=== PATIENT | female | born 1950 | race Caucasian/White ===

== ENCOUNTER 2025-02-19 10:00 | Emergency (ER) | payer MEDICARE, SELFPAY ==
[2025-02-19 10:07] VITALS: BP 178/79; PULSE 86; RESP 14; O2SAT 96; BMI 29.0
--- NOTE | 2025-02-19 10:10 | DI.RAD.S_ITS ---
PROCEDURE: XR KNEE LT 3V INDICATIONS: twisted left knee,unable to bear weight TECHNIQUE: 3 views of the knee were acquired. COMPARISON: None. FINDINGS: Bones: No fractures or dislocations. No suspicious bony lesions. Soft tissues: No joint effusion. No suspicious soft tissue calcifications. IMPRESSION: No acute bony abnormality or significant effusion. Dictated by: Nikko Law M.D. on 02/19/2025 at 10:31 Approved by: Nikko Law M.D. on 02/19/2025 at 10:43
--- NOTE | 2025-02-19 10:47 | ED.LOWEXIN ---
HPI - Extremity Injury (Lower) General Chief Complaint: Extremity Injury, Lower Stated Complaint: cannot bear weight on lt knee, twisted Time Seen by Provider: 02/19/25 10:30 Source: patient Mode of arrival: Wheelchair History of Present Illness HPI Narrative: Patient brought here by her son for complaints of left knee pain. Yesterday at the refrigerator she pivoted and had her left leg and knee planted and felt pain in her left knee. Two months ago she did twist her knee while hiking. It has been off and on pain since then. Prior to that she has never had knee pain injury or surgeries. . Left knee to toes exposed. She did take leftover hydrocodone from a dental procedure at 9:00 a.m. this morning. No numbness or tingling to the leg or foot. Related Data Previous Rx's ?Medication ?Instructions ?Recorded hydrocodone 5 mg-acetaminophen 325 1 tab PO Q6H PRN pain #20 tabs 02/19/25 mg tablet Allergies Allergy/AdvReac Type Severity Reaction Status Date / Time No Known Drug Allergies Allergy Verified 02/19/25 10:07 Review of Systems Review of Systems Narrative: GENERAL: Negative chills, fatigue, malaise, fever, sweats. HEENT: Negative sinus pain, ear pain, sore throat RESPIRATORY: Negative dyspnea, cough CARDIOVASCULAR: Negative chest pain, palpitations GASTROINTESTINAL: Negative vomiting, nausea, abdominal pain : Negative dysuria, frequency, hematuria MUSCULOSKELETAL: Positive muscle or bony pain SKIN: Negative rash, skin lesions NEUROLOGIC: Negative weakness, numbness ROS Unobtainable: All systems reviewed & are unremarkable except as noted in HPI and below Patient History Social History Smoking Status: Unknown if ever smoked Smoking Status: Unknown if ever smoked Exam Narrative Exam Narrative: GENERAL: in no distress, not toxic not dyspneic HEAD: Normocephalic. EYES: Pupils equal round EXTREMITIES: No gross deformities. Examination left lower extremity foot warm soft pink strong pedal pulse brisk cap refills light touch intact to foot and toes. Ankle nontender., left knee no bruising or edema seen. Patient able to fully extend knee as well as flex to 90?. There is pain but no laxity of the left knee with lateral and medial stress of the left leg. No pain or laxity of the left knee with anterior-posterior and rotational stress on the left leg. NEURO: AOx4. Clear speech SKIN: Warm and dry PSYCH: Not anxious, is cooperative Initial Vital Signs Initial Vital Signs: Vital Signs Pulse Rate 86 02/19/25 10:07 Respiratory Rate 14 02/19/25 10:07 Blood Pressure 178/79 H 02/19/25 10:07 Pulse Oximetry 96 02/19/25 10:07 Oxygen Delivery Method Room Air 02/19/25 10:07 Procedures Orthopedic Splinting/Casting Injury #1: Time of procedure: 10:52 Side: left Lower Extremity Injury Location: knee Lower Extremity Immobilizer: knee immobilizer Post splinting neuro exam: intact Post splinting vascular exam: intact Placed by: Nursing Course Orders Ordered: ED Orders 02/19/25 10:10 XR knee LT 3V Stat 02/19/25 10:48 Consult to Orthopedic Surgery Stat Vital Signs Vital signs: Vital Signs - 8 hr 02/19/25 10:07 Pulse Rate 86 Respiratory Rate 14 Blood Pressure 178/79 H Pulse Oximetry 96 Oxygen Delivery Method Room Air MDM - Extremity Injury (Lower) Imaging Data Extremity x-ray #1: Radiologist's Impression: [address] [address] XRay Report Signed Patient: Elizabeth Phillips MR#: [id number] : 1950 Acct:[id number] Age/Sex: 74 / F Date of Service: 02/19/25 Loc: ED Accession Number: [id number] Procedure: XR knee LT 3V Ordering Provider: Anant Washington MD PROCEDURE: XR KNEE LT 3V INDICATIONS: twisted left knee,unable to bear weight TECHNIQUE: 3 views of the knee were acquired. COMPARISON: None. FINDINGS: Bones: No fractures or dislocations. No suspicious bony lesions. Soft tissues: No joint effusion. No suspicious soft tissue calcifications. IMPRESSION: No acute bony abnormality or significant effusion. Dictated by: Nikko Law M.D. on 02/19/2025 at 10:31 Approved by: Nikko Law M.D. on 02/19/2025 at 10:43 [facility] Narrative Medical decision making narrative: Patient brought here by her son for complaints of left knee pain. Yesterday at the refrigerator she pivoted and had her left leg and knee planted and felt pain in her left knee. Two months ago she did twist her knee while hiking. It has been off and on pain since then. Prior to that she has never had knee pain injury or surgeries. . Left knee to toes exposed. She did take leftover hydrocodone from a dental procedure at 9:00 a.m. this morning. No numbness or tingling to the leg or foot MDM After history and exam, x-ray left knee, immobilizer Differential considered: Includes but not limited to knee strain sprain fracture dislocation Medical records reviewed: No recent visit for this complaint Imaging studies independently reviewed: X-ray left knee no acute finding Consultations: None indicated at this time Re-evaluations: 10:51 a.m.. Reviewed results with patient and treatment plan. She does agree with knee immobilizer, she has crutches at home. Referral for Orthopedics provided. Return precautions reviewed. She does desire short course of pain medication prescription. She will need outpatient MRI of the knee. Discussion: Appropriate for discharge home. Exam is reassuring. Pain controlled. Leg and foot neurovascularly intact. Return precautions reviewed and she desires discharge home. Diagnosis: Left knee sprain Discharge Plan Departure Patient Disposition: Home Clinical Impression: Knee Injury Qualifiers: Encounter type: initial encounter Laterality: left Qualified Code(s): S89.92XA - Unspecified injury of left lower leg, initial encounter Instructions: DI for Knee Sprain, DI for Knee Pain Activity Restrictions/Additional Instructions: Please use provided knee immobilizer until office appointment time with orthopedics. Please call their office today for appointment time. No driving operating machinery when taking prescribed pain medication. Return if worse if any questions or concerns. Elevate knee when at rest to reduce swelling. May use cool back 20 minutes at a time as needed for pain and swelling. Prescriptions: New hydrocodone-acetaminophen 5-325 mg tablet 1 tab PO Q6H PRN (Reason: pain) Qty: 20 0RF Referrals: Talya Casey DO [Physician, Orthopedic Surgery] Stand Alone Forms: Patient Portal/API
== END 2025-02-19 11:05 | disposition home or self-care (01) ==
PROVIDERS: Emergency Provider Emergency Medicine; Family Provider Registered Nurse Women's Health Care, Ambulatory
DX: S89.92XA Unspecified injury of left lower leg, initial encounter (principal); X50.1XXA Overexertion from prolonged static or awkward postures, initial encounter
CPT/HCPCS: 73562; 99282; 99283